=== PATIENT | female | born 1970 | race Two or more races ===

== ENCOUNTER → 2024-11-06 | Emergency (ER) | payer OTHER | END | disposition left against medical advice (07) | LOC: ER 18:34 | DX: Z53.21 Procedure and treatment not carried out due to patient leaving prior to being seen by health care provider (principal) ==

== ENCOUNTER 2024-11-07 08:54 | Emergency (ER) | payer OTHER ==
[~2024-11-07] VITALS: Ht 175.3 cm; Wt 99.8 kg
== END 2024-11-07 10:30 | disposition home or self-care (01) ==
LOC: ER 08:54
DX: T82.898A Other specified complication of vascular prosthetic devices, implants and grafts, initial encounter (principal); Z88.8 Allergy status to other drugs, medicaments and biological substances; N28.89 Other specified disorders of kidney and ureter; K50.90 Crohn's disease, unspecified, without complications